=== PATIENT | male | born 1960 | race Caucasian/White ===

== ENCOUNTER 2020-11-18 12:36 | Emergency (ER) | payer OTHER, SELFPAY ==
[2020-11-18 12:37] VITALS: BP 170/98; PULSE 70; RESP 20; TEMP 36.4; O2SAT 94; BMI 33.2
--- NOTE | 2020-11-18 12:48 | W.ED.ANIMALB ---
HPI - Animal Bite General: Chief Complaint: Animal Bite Stated Complaint: snake bite to L ankle Time Seen by Provider: 11/18/20 12:46 History of Present Illness: HPI narrative: Mr. Mast is a 60-year-old gentleman with significant past medical history of hypertension, who is a nondiabetic, who presents emergency department due to snakebite. He reports that he was working moving some logs when a snake bit him in the left ankle. 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 He immediately had pain and swelling. He cleaned the area and put hydrogen peroxide over it. He has had dull achy pain which mildly rates to the calf however feels that the swelling is improved. He has otherwise been at his baseline health. His symptoms are worse with movement but did not go with rest. No other specific exacerbating, alleviating, or provoking factors. He denies systemic involvement or any other complaints at this time. Review of Systems General: Reports: 10 or more systems reviewed and unremarkable except in HPI and below Narrative: CONSTITUTIONAL: denies fever, fatigue, weakness EYES - denies pain, denies loss of vision EARS - denies ear issues. NOSE - denies congestion or rhinorrhea. THROAT - denies sore throat or difficulty swallowing. CARDIOVASCULAR - denies chest pain and palpitations RESPIRATORY - denies shortness of breath and cough GASTROINTESTINAL - denies abdominal pain, no nausea vomiting, no changes in bowel habits GENITOURINARY - denies dysuria or urinary frequency MUSCULOSKELETAL- denies deformity or pain SKIN -bite as noted in HPI. NEUROLOGIC - denies focal weakness or sensory changes HEMATOLOGIC/LYMPHATIC - denies easy bruising or lymphadenopathy. Physical Exam Narrative: EXAM NARRATIVE: GENERAL/CONSTITUTIONAL - well-appearing. No acute distress. Eyes - PERRL, no conjunctival injection ENMT - Atraumatic external nose and ears. Moist mucous membranes NECK - supple. trachea midline CARDIOVASCULAR - regular rate and rhythm. Peripheral pulses 2+ and equal RESPIRATORY -clear to auscultation bilaterally. No retractions or accessory muscle use. ABDOMEN/GI - Nontender/Nondistended. No tenderness to percussion or evidence of peritonitis MSK - Extremities without obvious deformity. There is mild edema about the left medial malleolus SKIN - Warm, Dry. There is a puncture wound and an abrasion about the left medial malleolus. Overall mild ecchymosis though no significant erythema. NEURO - alert and appropriately oriented. strength and sensation intact. Moves all extremities equally. PSYCH - Appropriate mood and affect Course ED course: - Patient was seen and evaluated by me at bedside - Patient placed on cardiac monitors, IV access obtained - Initial evaluation notable for puncture wound as noted above. Patient is nontoxic appearance and no acute distress - Analgesia ordered. - I discussed the case with poison control who recommended 6-hour observation. With initial labs and repeat labs. Additionally watch for increased induration or redness. - Labs notable for no significant abnormality - Tdap updated - After initial labs resulted the patient expressed a desire to leave. - I had an extensive discussion with the patient regarding risks of leaving prior to completion of observation Up to and including . Based on my assessment the patient is competent to make a decision to leave AGAINST MEDICAL ADVICE at this time. He understands that he is free to return to the emergency department at anytime for any reason. - Follow-up plan discussed. - Patient ambulated from the emergency department without decompensation or acute event. Vital Signs: Vital signs: Vital Signs Temperature 97.6 F 11/18/20 12:37 Pulse Rate 65 11/18/20 15:07 Respiratory Rate 16 11/18/20 15:07 Blood Pressure 178/96 11/18/20 15:07 Pulse Oximetry 96 11/18/20 15:07 MDM - Animal Bite Medical Records: Attestation: I reviewed the patient's medical records. Lab Data: Attestation: I reviewed the patient's lab results. Labs: Lab Results 11/18/20 11/18/20 11/18/20 Range/Units 13:06 13:06 13:06 WBC 10.1 H (4.0-10.0) 10^3/ uL RBC 5.09 (4.1-5.3) 10^6/u L Hgb 15.4 (11.7-16.6) g/dL Hct 45.8 (42.0-52.0) % MCV 90.0 (80-94) fl MCH 30.3 (28.0-34.0) pg MCHC 33.6 (30.0-36.0) g/dL RDW 13.2 (12.1-15.1) % Plt Count 246 (130-400) 10^3/c mm MPV 10.3 (7.4-10.4) fL Neut % (Auto) 41.3 % Lymph % (Auto) 42.2 % [place] % (Auto) 9.9 % Eos % (Auto) 5.3 % Baso % (Auto) 0.9 % Neut # (Auto) 4.16 (1.8-7.7) 10^3/u L Lymph # (Auto) 4.2 (0.8-4.8) 10^3/u L [place] # (Auto) 1.0 H (0.2-0.9) 10^3/u L Eos # (Auto) 0.5 (0.0-0.8) 10^3/u L Baso # (Auto) 0.1 (0.0-0.1) 10^3/u L Nucleated RBC % (a uto) 0 % Nucleated RBCs # 0.0 /100WBC PT 12.50 (12.1-14.9) SECO NDS INR 0.91 (0.8-1.2) APTT 27.5 (23.9-36.7) SECO NDS Sodium 135 L (136-145) mmol/L Potassium 3.9 (3.5-5.1) mmol/L Chloride 101 (98-107) mmol/L Carbon Dioxide 23 (22-29) mmol/L Anion Gap 14.9 (5-19) BUN 12 (8-23) mg/dL Creatinine 0.8 (0.7-1.2) mg/dL GFR Calculation 98.0 (90-130) mL/min Glucose 192 H (65-115) mg/dL Calculated Osmolal ity 285 (285-295) mOsm/k g Calcium 8.7 (8.5-10.5) mg/dL Total Bilirubin 0.4 (0.15-1.2) mg/dL AST 24 (0-40) U/L ALT 28 (0-41) U/L Alkaline Phosphata se 78 (40-130) IU/L Total Protein 6.9 (6.6-8.7) g/dL Albumin 4.1 (3.5-5.2) g/dL Globulin 2.8 (1.3-4.6) g/dL Discharge Plan Discharge Patient Disposition: Left Against Medical Advice Clinical Impression: Snake bite Condition: Stable Referrals: Daron Lopez DO [Primary Care Provider] - Discharge Diet: Usual diet Discharge Activity: Resume usual activity Patient Instructions: Snake Bite (ED) Activity Restrictions/Additional Instructions: Thank you for visiting the emergency department. You were seen and evaluated for a snakebite. Snake bites could be deadly and we recommend that you remain in the emergency department for observation which you are declining and instead choosing to leave AGAINST MEDICAL ADVICE. You may return to the emergency department for any reason at any time. The specific recommendations of the Poison Control Center were to recheck labs, if you do not return to the emergency department to have these rechecked please have them rechecked by your primary care provider including coagulation studies. Please return to the emergency department for rapidly spreading swelling, uncontrolled pain, swelling that passes above the knee, signs of systemic involvement, or anything else that you are concerned about and feel needs emergency department evaluation. Coding Level of Care Code ED Senior Clinical Project Manager for Jen Arriaga
[2020-11-18] MEDS: tetanus-dipt-pertussis 0.5 mL SDV IM (13:13)
[2020-11-18 13:15] LABS: Basophils # 0.1 10^3/uL (0.0-0.1); Basophils % 0.9 %; Eosinophils # 0.5 10^3/uL (0.0-0.8); Eosinophils % 5.3 %; Hematocrit 45.8 % (42.0-52.0); Hemoglobin 15.4 g/dL (11.7-16.6); Lymphocytes # 4.2 10^3/uL (0.8-4.8); Lymphocytes % 42.2 %; Mean Corpuscular HGB Conc 33.6 g/dL (30.0-36.0); Mean Corpuscular Hemoglobin 30.3 pg (28.0-34.0); Mean Platelet Volume 10.3 fL (7.4-10.4); Monocytes % 9.9 %; Neutrophils # 4.16 10^3/uL (1.8-7.7); Neutrophils % 41.3 %; Nucleated Red Blood Cells % 0 %; Platelet Count 246 10^3/cmm (130-400); Red Blood Count 5.09 10^6/uL (4.1-5.3); Red Cell Distribution Width 13.2 % (12.1-15.1); White Blood Count 10.1 10^3/uL (4.0-10.0)
[2020-11-18 13:39] LABS: INR 0.91 (0.8-1.2)
[2020-11-18 13:40] LABS: Partial Thromboplastin Time 27.5 SECONDS (23.9-36.7)
--- NOTE | 2020-11-18 13:41 | PC.NURSE ---
patient tolerated pain well. denied pain medication at this time.
[2020-11-18 13:54] LABS: Alanine Aminotransferase 28 U/L (0-41); Albumin Level 4.1 g/dL (3.5-5.2); Alkaline Phosphatase 78 IU/L (40-130); Anion Gap 14.9 (5-19); Aspartate Amino Transferase 24 U/L (0-40); Blood Urea Nitrogen 12 mg/dL (8-23); Calcium 8.7 mg/dL (8.5-10.5); Carbon Dioxide 23 mmol/L (22-29); Chloride 101 mmol/L (98-107); Globulin 2.8 g/dL (1.3-4.6); Glucose 192 mg/dL (65-115); Osmolality Calculated 285 mOsm/kg (285-295); Potassium 3.9 mmol/L (3.5-5.1); Sodium 135 mmol/L (136-145); Total Bilirubin 0.4 mg/dL (0.15-1.2); Total Protein 6.9 g/dL (6.6-8.7)
[2020-11-18 14:00] VITALS: BP 167/114; PULSE 67; RESP 18; O2SAT 96
[2020-11-18 15:07] VITALS: BP 178/96; PULSE 65; RESP 16; O2SAT 96
== END 2020-11-18 15:09 | disposition left against medical advice (07) ==
PROVIDERS: Emergency Provider Emergency Medicine; PCP Student in an Organized Health Care Education/Training Program
DX: T63.091A Toxic effect of venom of other snake, accidental (unintentional), initial encounter (principal); R22.42 Localized swelling, mass and lump, left lower limb; M25.572 Pain in left ankle and joints of left foot; Z53.29 Procedure and treatment not carried out because of patient's decision for other reasons
CPT/HCPCS: 80053; 85025; 85610; 85730; 90471; 90715; 99283